=== PATIENT | male | born 1975 | race Hispanic/Latino ===

== ENCOUNTER 2017-12-10 09:52 | Emergency (ER) | payer SELFPAY ==
[~2017-12-10] VITALS: Ht 167.6 cm; Wt 81.8 kg
[2017-12-10] MEDS ORDERED: NORCO 5-325 TA1 EACH PO (10:58)
[2017-12-10] MEDS ORDERED: KEFLEX500 MG PO (10:58)
[2017-12-10] MEDS ORDERED: NAPROSYN500 MG PO (10:58)
== END 2017-12-10 11:13 | disposition home or self-care (01) ==
LOC: ED 09:52
DX: S68.112A Complete traumatic metacarpophalangeal amputation of right middle finger, initial encounter (principal); S60.410A Abrasion of right index finger, initial encounter; X58.XXXA Exposure to other specified factors, initial encounter; Y93.89 Activity, other specified
CPT/HCPCS: 73130; 99283